=== PATIENT | female | born 1985 | race Caucasian/White ===

== ENCOUNTER 2019-01-31 17:56 | Emergency (ER) | payer OTHER ==
[~2019-01-31] VITALS: Ht 154.9 cm; Wt 122.5 kg
[2019-01-31] MEDS ORDERED: DIFLUCAN150 MG PO (18:45)
[2019-01-31 18:52] VITALS: BP 155/100
== END 2019-01-31 18:53 | disposition home or self-care (01) ==
LOC: M.ERS 17:56
DX: N76.0 Acute vaginitis (principal)

== ENCOUNTER 2019-02-09 11:02 | Emergency (ER) | payer OTHER ==
[~2019-02-09] VITALS: Ht 154.9 cm; Wt 121.6 kg
[~2019-02-09 11:02] MED LIST: DIFLUCAN150 MG PO
[2019-02-09 11:26] LABS: URINE BLOOD TRACE (Negative); URINE CLARITY CLEAR; URINE COLOR YELLOW; URINE GLUCOSE-RANDOM 1+ (Negative); URINE KETONES TRACE (Negative); URINE LEUKOCYTES-REFLEX NEGATIVE (Negative); URINE NITRITE-REFLEX NEGATIVE (Negative); URINE PROTEIN 1+ (Negative); URINE SPECIFIC GRAVITY >= 1.030 (1.005-1.030)
[2019-02-09 11:32] LABS: ICTOTEST (BILI CONFIRMATORY) Negative (Negative); URINE BILIRUBIN 2+ (Negative)
[2019-02-09] MEDS ORDERED: DIFLUCAN150 M1 PO (11:51)
[2019-02-09 12:00] VITALS: BP 178/88
== END 2019-02-09 12:00 | disposition home or self-care (01) ==
LOC: M.ERS 11:02
PROVIDERS: Nurse Practitioner Family
DX: B37.3 Candidiasis of vulva and vagina (principal)